=== PATIENT | male | born 1970 | race Two or more races ===

== ENCOUNTER → 2018-12-27 | Outpatient (CLI) | payer OTHER ==
[2014-09-16 11:00] VITALS: BP 130/82
[~2018-12-27] MED LIST: BENZ100C PO; BENZ200C47 PO; DOXY100T PO; HYDR15SO6 PO; HYDR5SUS PO; PANT40TA3 PO; PRED20TA PO; VENTOLIN HFA18 GM IH
--- NOTE | 2018-12-27 16:34 | RAD ---
CT Head W/O Contrast: History: CONCUSSION Comparison: none Axial images were obtained without contrast. The chaudhry and white matter appears normal and symmetrical for the patients age. There is no mass effect, extraaxial fluid collections or hydrocephalus. There is no gross bleed. There is no focal loss of chaudhry-white matter distinction to suggest acute ischemia, i.e. stroke. Minimal chronic paranasal sinusitis. Impression: No acute findings. RS Compliance Statement: One or more of the following individualized dose reduction techniques were utilized for this examination: 1. Automated exposure control 2. Adjustment of the mA and/or kV according to patient size 3. Use of iterative reconstruction technique
== END | disposition home or self-care (01) ==
LOC: CT 14:13
PROVIDERS: ATTEND Internal Medicine Cardiovascular Disease
DX: S06.0X0D Concussion without loss of consciousness, subsequent encounter (principal); S00.03XD Contusion of scalp, subsequent encounter; J32.8 Other chronic sinusitis; X58.XXXD Exposure to other specified factors, subsequent encounter
CPT/HCPCS: 70450